=== PATIENT | female | born 1950 | race Caucasian/White ===

== ENCOUNTER 2023-10-06 13:09 | Emergency (ER) | payer MEDICARE, SELFPAY ==
[2023-10-06 13:15] VITALS: BP 182/98
[2023-10-06 13:47] LABS: % Basophils 0.6 % (0-2); % Eosinophils 5.5 % (0-6); % Immature Granulocytes 0.4 % (0-0.5); % Lymphocytes 15.4 % (20.5-51.1); % Monocytes 4.9 % (1.7-9.3); % Neutrophils 73.2 % (42.2-75.2); Absolute Basophils 0.1 10^3/uL (0-0.2); Absolute Eosinophils 0.5 10^3/uL (0-0.7); Absolute Lymphocytes 1.3 10^3/uL (1.2-3.4); Absolute Monocytes 0.4 10^3/uL (0.1-0.6); Absolute Neutrophils 6.2 10^3/uL (1.4-6.5); Hematocrit 39.1 % (37.0-47.0); Hemoglobin 13.3 g/dL (12.0-16.0); Mean Corpuscular Volume 85.4 fL (81.0-99.0); Mean Platelet Volume 9.5 fL (7.4-10.4); Nucleated Red Blood Cells % 0 %; Platelet Count 276 10^3/uL (130-400); Red Blood Cell Count 4.58 10^6/uL (4.20-5.40); Red Cell Dist. Width 12.3 % (11.5-14.5); White Blood Cell Count 8.5 10^3/uL (4.8-10.8)
[2023-10-06 13:49] LABS: ALT (SGPT) 28 U/L (0-35); AST (SGOT) 28 U/L (14-36); Albumin 4.6 g/dl (3.5-5.0); Alkaline Phosphatase 77 U/L (38-126); Blood Urea Nitrogen 21 mg/dl (7-17); Calcium 9.7 mg/dl (8.4-10.2); Carbon Dioxide 27 mmol/L (22-30); Chloride 101 mmol/L (98-107); Glucose 145 mg/dl (70-99); Potassium 4.3 mmol/L (3.5-5.1); Sodium 134 mmol/L (135-145); Total Bilirubin 1.1 mg/dl (0.2-1.3); Total Protein 7.2 g/dl (6.3-8.2); eGFR > 60.00
[2023-10-06 13:53] LABS: COVID-19 Antigen Negative (Negative)
[2023-10-06 14:00] LABS: NT-proBNP 130 pg/ml; Troponin I < 0.012 ng/ml
[2023-10-06 14:32] VITALS: BP 185/90
[2023-10-06] MEDS: DECADRON 10 MG PO (16:34)
--- NOTE | 2023-10-06 16:34 | ED.GENMED ---
History of Present Illness
General
Chief Complaint: Breathing Problem
Source: patient and family
Exam Limitations: none
Time Seen by Provider: 10/06/23 15:09
Nursing documentation reviewed up to this point in time: agreed with
Travel History
Have you had any contact with someone who has COVID-19?: No
Do you have any symptoms of coronavirus? Fever > 100 degrees, chills, cough, shortness of breath, sore throat, loss of taste or smell, muscle aches, or headache?: No
History of Present Illness
History of Present Illness:
72-year-old female with [place] history of hypertension, GERD previous smoker a total pack-year history of 30 years presenting to the emergency department today with concerns of shortness of breath worsening over the past 2 days. Denies any
specific chest pain nausea vomiting recent illness. Denies any fevers. Has noticed wheezing.
Past History
Past History
ED Past Medical History: GERD, HTN and Other (Diverticulosis, diverticulitis)
ED Past Surgical History: Gynecological and Orthopedic
Social History
Tobacco: Non-smoker
Alcohol: None
Drug: None
Personal:
Living: with family
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
Family History
Family History: Hypertension
Review of Systems
Review of Systems
Allergies reviewed?: Yes
All Other Systems: ROS reviewed and negative except as documented in HPI and ROS
Phy Exam
Physical Exam
Physical Exam:
GENERAL: Alert , in no apparent distress
EYE: pupils equal and reactive
NECK: Supple, no significant adenopathy.
ENT: o/p clr, mmm.
CARDIAC: Regular rate and rhythm .
LUNGS: Inspiratory and expiratory wheezing diffusely
ABDOMEN: Soft, without focal tenderness, no r/g, no cvat
NEUROLOGICAL: Alert and oriented, no focal neuro deficits
SKIN: Warm and dry, skin intact.
MUSCULOSKELETAL: No edema, well perfused.
PSYCH: Normal and appropriate interaction.
Scores
Heart Failure Risk
Heart Failure Risk Score: Not Applicable
Course
Orders/Labs/Results
Orders:
Orders
10/06/23 13:18
Electrocardiogram (*1) Urgent
Reason for Study: Other
Other Reason for Exam: Respiratory Distress
EKG- Treatment ONCE
10/06/23 13:28
COVID-19 Antigen Urgent
Source: Nasal Swab
Complete Blood Count/With Diff Urgent
Comprehensive Metabolic Panel Urgent
NT-proBNP Urgent
Troponin I Urgent
INF RAPID [Influenza A+B Rapid Molecular] Urgent
ADONIS Source: Nasal Swab
Specimen Description:
10/06/23 15:32
Chest [CR Chest - 2 Views ] Urgent
Comment:
Reason For Exam: chest pain sob
10/06/23 16:26
Dexamethasone [Decadron] 10 mg PO NOW STA
Ipratropium/Albuterol Sulfate [Duoneb] 3 ml INH R NOW ONE
10/06/23 16:36
Urinalysis Reflex To Culture Urgent
Date Specimen was Collected: 10/06/23
Time Specimen was Collected: 16:35
Urine Microscopic Reflex Cult Urgent
Urine Culture Urgent
ADONIS Source: U
Specimen Description:
Date Specimen was Collected: 10/06/23
Time Specimen was Collected: 16:35
10/06/23 17:31
Ipratropium/Albuterol Sulfate [Duoneb] 3 ml INH R NOW ONE
Abnormal Lab Results
10/06/23 10/06/23
13:28 16:36
Lymphocytes % 15.4 L %
(20.5-51.1)
Sodium 134 L mmol/L
(135-145)
BUN 21 H mg/dl
(7-17)
Creatinine 0.5 L mg/dL
(0.6-1.0)
Glucose 145 H mg/dl
(70-99)
Leukocyte Esterase Rfl 1+ A
(Negative)
Urine Bacteria (Reflex) Moderate A
(Negative)
10/06/23 13:28
10/06/23 13:28
Vital Signs
Initial and Last Documented VS:
Initial Vital Signs
Temp Pulse Resp BP Pulse Ox
97.9 F 86 16 182/98 94
10/06/23 13:15 10/06/23 13:15 10/06/23 13:15 10/06/23 13:15 10/06/23 13:15
Last Documented Vital Signs
Temp Pulse Resp BP Pulse Ox
97.9 F 90 15 153/69 94
10/06/23 13:15 10/06/23 18:45 10/06/23 18:45 10/06/23 18:00 10/06/23 18:30
MDM/Problems Addressed
MDM/Problems Addressed:
32-year-old female presenting to the emergency department today with concerns of shortness of breath and wheezing over the past 2 days. Here patient with elevated blood pressure otherwise vital signs are normal pulse ox in the mid 90s patient does
have auditory inspiratory expiratory wheezing diffusely. Otherwise EKG unremarkable labs unremarkable and chest x-ray without signs of pneumonia. Symptoms consistent with reactive airway potentially a manifestation of early COPD considering her
long smoking history. Patient treated with DuoNeb as well as steroid with plans for reassessment. Patient observed here for multiple hours in the ER. She was able to ambulate with no obvious shortness of breath pulse ox remained in the mid 90s.
Patient generally appears well. Appears stable for outpatient management. Will treat with ongoing steroid burst does have a nebulizer treatment at home and will follow closely with the primary care doctor within the next week. Return precautions
were given.
*Critical Care Note
Total Time (30-74mins, 75-104mins- exclusive of procedures): Not Applicable
ED Attending Note
-
Portions of this chart may have been created with voice recognition software.� Occasional wrong word or��sound alike� substitutions may have occurred due to the inherent limitations of voice recognition software.
Discharge Plan
Departure
Patient Disposition: Home (Routine Discharge)
Date of Disposition: 10/06/23
Time of Disposition: 19:59
Patient with high blood pressure during this ER visit?: No
Condition: Good
Covid-19: Not Applicable
Discharge Problem:
Wheezing
Instructions: Exacerbation of COPD (DC)
Prescriptions:
New
prednisone 20 mg tablet
40 mg PO DAILY 4 Days Qty: 8 0RF
albuterol sulfate 90 mcg/actuation aerosol powdr breath activated
2 inh inhalation Q6H PRN (Reason: shortness of breath) Qty: 1 0RF
No Action
venlafaxine [Effexor XR] 150 MG capsule,extended release 24hr
150 mg PO DAILY
spironolactone 25 MG tablet
25 mg PO DAILY
omeprazole 20 MG capsule,delayed release(DR/EC)
20 mg PO DAILY
albuterol sulfate [Proventil HFA] 90 MCG/PUFF HFA aerosol inhaler
2 puff inhalation Q4HPRN PRN (Reason: shortness of breath/cough) Qty: 1 0RF
acetaminophen [Tylenol Extra Strength] 500 MG tablet
500 mg PO PRN PRN (Reason: pain)
losartan [Cozaar] 100 MG tablet
100 mg PO DAILY
Hydrochlorothiazide
25 mg PO DAILY
Multiple Vitamins
1 tab PO DAILY
Vitamin C:
1,000 mg PO DAILY
Vitamin D3:
2,000 units PO DAILY
hydrocodone-acetaminophen [[place]] 1 EACH tablet
1 ea PO Q4HPRN PRN (Reason: pain>3/10) Qty: 20 0RF
Rx Instructions:
take with daily stool softener
Referrals:
Sung Davila MD [Family Provider] -
Activity Restrictions/Additional Instructions:
You came to the emergency department today with concerns of ongoing shortness of breath. You are found to have significant wheezing which could be a COPD exacerbation. Please take the prednisone 40 mg once daily for the next 4 days as well as the
albuterol as needed. Please follow closely with your primary care doctor within 1 week for reassessment. Return to the emergency department any worsening, new or concerning symptoms.
Interventions
Interventions:
*Risk Screen - Suicide Last Done: 10/06/23 13:15
*General Assessment Last Done: 10/06/23 13:15
*Neglect/Abuse Screening Last Done: 10/06/23 13:15
ED- Cardiac Assessment Last Done: 10/06/23 14:31
ED- Pulmonary Assessment Last Done: 10/06/23 14:31
[2023-10-06] MEDS: DUONEB 3 ML INH ×2 (16:35→18:31)
[2023-10-06 17:00] LABS: Urine Albumin Negative (Neg - Trace); Urine Bilirubin Negative (Negative); Urine Character Clear (Clear); Urine Color Yellow; Urine Glucose Negative (Negative); Urine Ketone Negative (Negative); Urine Leukocyte 1+ (Negative); Urine Nitrite Negative (Negative); Urine Occult Blood Negative (Negative); Urine Specific Gravity 1.005 (<1.030); Urine Urobilinogen Negative (Neg - 1+)
[2023-10-06 17:02] VITALS: BP 159/77
[2023-10-06 18:00] VITALS: BP 153/69
[2023-10-06 18:07] LABS: Urine Squamous Cell >30 /LPF (Few)
[2023-10-06 18:08] LABS: Urine Bacteria Moderate (Negative); Urine Red Blood Cell 0-2 /HPF (0-2)
== END 2023-10-06 20:32 | disposition home or self-care (01) ==
LOC: EMR 13:09
PROVIDERS: Emergency Medicine; Physician Assistant; EMERGENCY PHYSICIAN Emergency Medicine; FAMILY PHYSICIAN Family Medicine
DX: R06.02 Shortness of breath (principal); Z11.52 Encounter for screening for COVID-19
CPT/HCPCS: 99285; 94640 ×2; 71046; 80053; 81003; 81015; 83880; 84484; 85025; 87086; 87502; 87811; 93005

== ENCOUNTER → 2023-11-12 13:11 | Outpatient (REF) | payer MEDICARE, SELFPAY | LOC: HWRCS 13:11 | PROVIDERS: ATTENDING PHYSICIAN Internal Medicine Cardiovascular Disease; FAMILY PHYSICIAN Family Medicine | DX: R06.02 Shortness of breath (principal); I10 Essential (primary) hypertension; J45.909 Unspecified asthma, uncomplicated | CPT/HCPCS: 93306 ==

== ENCOUNTER → 2024-01-15 12:32 | Outpatient (REF) | payer MEDICARE, SELFPAY ==
[2024-01-15 15:34] LABS: ALT (SGPT) 28 U/L (0-35); AST (SGOT) 30 U/L (14-36); Albumin 4.3 g/dl (3.5-5.0); Alkaline Phosphatase 66 U/L (38-126); Blood Urea Nitrogen 21 mg/dl (7-17); Calcium 9.8 mg/dl (8.4-10.2); Carbon Dioxide 30 mmol/L (22-30); Chloride 102 mmol/L (98-107); Glucose 143 mg/dl (70-99); HDL Cholesterol 58 mg/dl; LDL Cholesterol, Calculated 67 mg/dl; Potassium 4.4 mmol/L (3.5-5.1); Sodium 141 mmol/L (135-145); Total Cholesterol 155 mg/dl (50-199); Total Protein 6.6 g/dl (6.3-8.2); Triglyceride 150 mg/dl (10-149); Very Low Density Lipoprotein 30 mg/dl (0-30); eGFR > 60.00
[2024-01-16 09:34] LABS: Glycohemoglobin (HgbA1c) 7.7 % (4.0-5.6)
== END ==
LOC: HWLAB 12:32
PROVIDERS: ATTENDING PHYSICIAN Family Medicine
DX: E11.69 Type 2 diabetes mellitus with other specified complication (principal); E78.5 Hyperlipidemia, unspecified
CPT/HCPCS: 36415; 80053; 80061; 83036

== ENCOUNTER → 2024-02-06 12:03 | Outpatient (REF) | payer MEDICARE, SELFPAY ==
[2024-02-06 17:04] LABS: TSH Reflex To Free T4 1.78 uIU/ml (0.47-4.68)
== END ==
LOC: HWWDC 12:03
PROVIDERS: ATTENDING PHYSICIAN Internal Medicine Critical Care Medicine; FAMILY PHYSICIAN Family Medicine
DX: Z12.31 Encounter for screening mammogram for malignant neoplasm of breast (principal); R23.2 Flushing; R53.83 Other fatigue
CPT/HCPCS: 36415; 77063; 77067; 84443

== ENCOUNTER → 2024-03-27 08:23 | Outpatient (REF) | payer MEDICARE, SELFPAY | LOC: MRI 3T 08:23 | PROVIDERS: ATTENDING PHYSICIAN Psychiatry & Neurology Neurology; FAMILY PHYSICIAN Family Medicine | DX: F41.9 Anxiety disorder, unspecified (principal); G31.84 Mild cognitive impairment of uncertain or unknown etiology | CPT/HCPCS: 70553; A9575 ==

== ENCOUNTER 2024-05-19 10:58 | Outpatient (RCR) | payer MEDICARE, SELFPAY | END 2024-05-19 23:59 | disposition home or self-care (01) | LOC: RPT 10:58 | PROVIDERS: ATTENDING PHYSICIAN Psychiatry & Neurology Neurology; FAMILY PHYSICIAN Family Medicine | DX: G91.2 (Idiopathic) normal pressure hydrocephalus (principal); Z73.6 Limitation of activities due to disability | CPT/HCPCS: 97162; 97167 ==

== ENCOUNTER → 2024-05-28 11:29 | Outpatient (REF) | payer MEDICARE, SELFPAY ==
[2024-05-28 12:23] LABS: INR 0.98
[2024-05-28 12:33] VITALS: BP 169/68; BP_SYST 63
[2024-05-28 13:39] VITALS: BP 147/51
[2024-05-28 14:11] LABS: CSF Clarity Clear; CSF Color Colorless; CSF Tube # 4; Red Cell Count/CSF 2 mm^3; White Cell Count/CSF 0 mm^3 (0-5)
[2024-05-28 15:04] LABS: Spinal Fluid Glucose 91 mg/dl (40-70); Spinal Fluid Protein 46 mg/dl (12-60)
== END ==
LOC: RADI 11:29
PROVIDERS: ATTENDING PHYSICIAN Psychiatry & Neurology Neurology; FAMILY PHYSICIAN Family Medicine
DX: G91.2 (Idiopathic) normal pressure hydrocephalus (principal); D68.8 Other specified coagulation defects
CPT/HCPCS: 36415; 62328; 82945; 84157; 85610; 89051

== ENCOUNTER 2024-05-28 13:59 | Outpatient (RCR) | payer MEDICARE, SELFPAY | END 2024-05-29 07:01 | disposition home or self-care (01) | LOC: RPT 13:59 | PROVIDERS: ATTENDING PHYSICIAN Psychiatry & Neurology Neurology; FAMILY PHYSICIAN Family Medicine | DX: G91.2 (Idiopathic) normal pressure hydrocephalus (principal); Z73.6 Limitation of activities due to disability | CPT/HCPCS: 97164; 97168 ==

== ENCOUNTER → 2024-06-25 10:22 | Outpatient (REF) | payer MEDICARE, SELFPAY ==
[2024-06-25 13:17] LABS: Microalbumin, Random Urine 0.7 mg/dl (0.6-1.7); Microalbumin/creatinine Ratio 9.4 mg/g
== END ==
LOC: HWLAB 10:22
PROVIDERS: ATTENDING PHYSICIAN Family Medicine
DX: E11.69 Type 2 diabetes mellitus with other specified complication (principal)
CPT/HCPCS: 82043; 82570

== ENCOUNTER → 2024-09-01 09:52 | Outpatient (REF) | payer MEDICARE, SELFPAY ==
[2024-09-01 12:31] LABS: % Basophils 0.5 % (0-2); % Eosinophils 2.8 % (0-6); % Immature Granulocytes 1.2 % (0-0.5); % Lymphocytes 18.3 % (20.5-51.1); % Monocytes 6.9 % (1.7-9.3); % Neutrophils 70.3 % (42.2-75.2); Absolute Eosinophils 0.2 10^3/uL (0-0.7); Absolute Immature Granulocytes 0.1 10^3/uL (0-0.05); Absolute Lymphocytes 1.1 10^3/uL (1.2-3.4); Absolute Monocytes 0.4 10^3/uL (0.1-0.6); Absolute Neutrophils 4.3 10^3/uL (1.4-6.5); Hematocrit 35.3 % (37.0-47.0); Hemoglobin 11.4 g/dL (12.0-16.0); Mean Corp Hgb Conc. 32.3 g/dL (33.0-37.0); Mean Corpuscular Hgb 28.2 pg (27.0-31.0); Mean Corpuscular Volume 87.4 fL (81.0-99.0); Nucleated Red Blood Cells % 0 %; Platelet Count 238 10^3/uL (130-400); Red Blood Cell Count 4.04 10^6/uL (4.20-5.40); Red Cell Dist. Width 12.8 % (11.5-14.5); White Blood Cell Count 6.1 10^3/uL (4.8-10.8)
[2024-09-01 12:41] LABS: INR 0.99; PT 13.4 Sec (11.4-14.6)
[2024-09-01 12:42] LABS: APTT 27.9 Sec (23.4-35.0)
[2024-09-01 12:53] LABS: Blood Urea Nitrogen 16 mg/dl (7-17); Calcium 8.9 mg/dl (8.4-10.2); Carbon Dioxide 30 mmol/L (22-30); Chloride 100 mmol/L (98-107); Glucose 190 mg/dl (70-99); Potassium 4.4 mmol/L (3.5-5.1); Sodium 138 mmol/L (135-145); eGFR > 60.00
[2024-09-01 13:47] LABS: Glycohemoglobin (HgbA1c) 8.4 % (4.0-5.6)
== END ==
LOC: HWLAB 09:52
PROVIDERS: ATTENDING PHYSICIAN Internal Medicine
DX: G91.2 (Idiopathic) normal pressure hydrocephalus (principal); Z01.818 Encounter for other preprocedural examination
CPT/HCPCS: 36415; 80048; 83036; 85025; 85610; 85730; 93005

== ENCOUNTER → 2024-10-12 13:27 | Outpatient (REF) | payer MEDICARE, SELFPAY | LOC: HWRAD 13:27 | PROVIDERS: ATTENDING PHYSICIAN Neurological Surgery; FAMILY PHYSICIAN Family Medicine | DX: G91.2 (Idiopathic) normal pressure hydrocephalus (principal) | CPT/HCPCS: 70450 ==

== ENCOUNTER → 2024-11-13 10:11 | Outpatient (REF) | payer MEDICARE, SELFPAY ==
[2024-11-13 12:45] LABS: % Basophils 0.8 % (0-2); % Eosinophils 3.2 % (0-6); % Immature Granulocytes 0.3 % (0-0.5); % Lymphocytes 23.2 % (20.5-51.1); % Neutrophils 64.5 % (42.2-75.2); Absolute Basophils 0.1 10^3/uL (0-0.2); Absolute Eosinophils 0.2 10^3/uL (0-0.7); Absolute Lymphocytes 1.5 10^3/uL (1.2-3.4); Absolute Monocytes 0.5 10^3/uL (0.1-0.6); Hematocrit 36.1 % (37.0-47.0); Hemoglobin 11.9 g/dL (12.0-16.0); Mean Corpuscular Hgb 27.4 pg (27.0-31.0); Mean Corpuscular Volume 83.2 fL (81.0-99.0); Mean Platelet Volume 9.8 fL (7.4-10.4); Nucleated Red Blood Cells % 0 %; Platelet Count 233 10^3/uL (130-400); Red Blood Cell Count 4.34 10^6/uL (4.20-5.40); White Blood Cell Count 6.2 10^3/uL (4.8-10.8)
[2024-11-13 13:27] LABS: ALT (SGPT) 23 U/L (0-35); AST (SGOT) 22 U/L (14-36); Albumin 4.1 g/dl (3.5-5.0); Alkaline Phosphatase 75 U/L (38-126); Blood Urea Nitrogen 22 mg/dl (7-17); Calcium 9.2 mg/dl (8.4-10.2); Carbon Dioxide 27 mmol/L (22-30); Chloride 101 mmol/L (98-107); Glucose 190 mg/dl (70-99); HDL Cholesterol 52 mg/dl; LDL Cholesterol, Calculated 71 mg/dl; Potassium 4.3 mmol/L (3.5-5.1); Sodium 136 mmol/L (135-145); Total Bilirubin 0.9 mg/dl (0.2-1.3); Total Cholesterol 175 mg/dl (50-199); Total Protein 6.6 g/dl (6.3-8.2); Triglyceride 260 mg/dl (10-149); Very Low Density Lipoprotein 52 mg/dl (0-30); eGFR > 60.00
[2024-11-13 13:57] LABS: Vitamin B12 892 pg/ml (239-931)
[2024-11-13 14:05] LABS: Glycohemoglobin (HgbA1c) 8.7 % (4.0-5.6)
== END ==
LOC: HWLAB 10:11
PROVIDERS: ATTENDING PHYSICIAN Family Medicine
DX: J45.50 Severe persistent asthma, uncomplicated (principal); G91.2 (Idiopathic) normal pressure hydrocephalus; J44.9 Chronic obstructive pulmonary disease, unspecified; E11.9 Type 2 diabetes mellitus without complications; I10 Essential (primary) hypertension; E78.5 Hyperlipidemia, unspecified; K21.9 Gastro-esophageal reflux disease without esophagitis; F32.9 Major depressive disorder, single episode, unspecified; G31.84 Mild cognitive impairment of uncertain or unknown etiology
CPT/HCPCS: 36415; 80053; 80061; 82607; 83036; 85025

== ENCOUNTER → 2024-12-31 13:06 | Outpatient (REF) | payer MEDICARE, SELFPAY | LOC: HWRAD 13:06 | PROVIDERS: ATTENDING PHYSICIAN Neurological Surgery; FAMILY PHYSICIAN Family Medicine | DX: G91.2 (Idiopathic) normal pressure hydrocephalus (principal) | CPT/HCPCS: 70450 ==

== ENCOUNTER → 2025-03-02 11:18 | Outpatient (REF) | payer MEDICARE, SELFPAY | LOC: HWRAD 11:18 | PROVIDERS: ATTENDING PHYSICIAN Neurological Surgery; FAMILY PHYSICIAN Family Medicine | DX: G91.2 (Idiopathic) normal pressure hydrocephalus (principal) | CPT/HCPCS: 70450 ==

== ENCOUNTER → 2025-05-10 11:39 | Outpatient (REF) | payer MEDICARE, SELFPAY | LOC: HWRAD 11:39 | PROVIDERS: ATTENDING PHYSICIAN Neurological Surgery; FAMILY PHYSICIAN Family Medicine | DX: G91.2 (Idiopathic) normal pressure hydrocephalus (principal) | CPT/HCPCS: 70450 ==

== ENCOUNTER → 2025-06-03 10:32 | Outpatient (REF) | payer MEDICARE, SELFPAY ==
[2025-06-03 12:42] LABS: Hematocrit 36.8 % (37.0-47.0); Hemoglobin 12.3 g/dL (12.0-16.0); Mean Corp Hgb Conc. 33.4 g/dL (33.0-37.0); Mean Corpuscular Volume 84.2 fL (81.0-99.0); Nucleated Red Blood Cells % 0 %; Platelet Count 246 10^3/uL (130-400); Red Cell Dist. Width 13.1 % (11.5-14.5)
[2025-06-03 13:04] LABS: ALT (SGPT) 31 U/L (0-35); AST (SGOT) 31 U/L (14-36); Albumin 4.4 g/dl (3.5-5.0); Alkaline Phosphatase 79 U/L (38-126); Blood Urea Nitrogen 20 mg/dl (7-17); Calcium 9.0 mg/dl (8.4-10.2); Carbon Dioxide 24 mmol/L (22-30); Chloride 103 mmol/L (98-107); Glucose 208 mg/dl (70-99); HDL Cholesterol 43 mg/dl; LDL Cholesterol, Calculated 58 mg/dl; Potassium 4.4 mmol/L (3.5-5.1); Sodium 137 mmol/L (135-145); Total Protein 7.0 g/dl (6.3-8.2); Very Low Density Lipoprotein 40 mg/dl (0-30); eGFR > 60.00
== END ==
LOC: HWLAB 10:32
PROVIDERS: ATTENDING PHYSICIAN Family Medicine
DX: E11.9 Type 2 diabetes mellitus without complications (principal); D64.9 Anemia, unspecified; E78.5 Hyperlipidemia, unspecified; Z68.41 Body mass index [BMI] 40.0-44.9, adult; E66.813 Obesity, class 3
CPT/HCPCS: 36415; 80053; 80061; 84443; 85025